=== PATIENT | male | born 1985 | race Caucasian/White ===

== ENCOUNTER → 2016-09-29 | Outpatient (CLI) | payer MEDICAID ==
[~2016-09-29] MED LIST: ERY-TAB 250MG250 MG OR; FLEXERIL10 M1 PO; HYCOTUSS EXPEC480 ML PO; MUCINEX600 MG PO; NOMEDS; NORCO 325 MG-51 TAB PO; ULTRACET 325 MG1 TAB PO; VICODIN 5/500 T1 TAB PO; ZITHROMAX500 MG PO
[2016-09-29 15:05] LABS: AMPHETAMINES/METAMPHETAMINES NEGATIVE ng/mL (<1000)
== END ==
LOC: LAB 14:15
PROVIDERS: Nurse Practitioner Family
DX: M25.511 Pain in right shoulder (principal)